=== PATIENT | female | born 1990 | race Caucasian/White ===

== ENCOUNTER → 2024-09-21 | Outpatient (CLI) | payer BC, SELFPAY ==
[2024-09-21 13:08] LABS: Collection Type, Urine Clean Catch
[2024-09-21 13:50] LABS: Bacteria,Urine Rare; Bilirubin,Urine Negative (Negative); Blood,Urine 1+ (Negative); Clarity,Urine Clear (Clear/Hazy); Color,Urine Yellow (Lt Yel-Yel); Glucose, Urine Negative (Negative); Ketones,Urine Negative (Negative); Leukocyte Esterase,Urine Positive (Negative); Nitrite,Urine Negative (Negative); Protein,Urine 1+ (Neg - Trace); RBC,Urine 5 /hpf (0-3); Specific Gravity,Urine 1.008 (1.001-1.035); Squamous Epithelial Cell,Urine < 1 /hpf (0-5); Urobilinogen,Urine Negative mg/dL (0.0-1.0); WBC,Urine 41 /hpf (0-5)
== END | disposition home or self-care (01) ==
LOC: SLDO 12:51
PROVIDERS: PCP Family Medicine; Referring Provider Family Medicine; Visit Provider Family Medicine
DX: N39.0 Urinary tract infection, site not specified (principal)
CPT/HCPCS: 81001; 87077; 87086; 87186

== ENCOUNTER 2024-11-18 12:52 | Outpatient (AMB) | payer BC, SELFPAY ==
[2024-11-18 13:01] VITALS: BP 105/74; PULSE 73; RESP 18; TEMP 36.1; O2SAT 99; BMI 22.6
--- NOTE | 2024-11-18 13:01 | PD.GSCLVISIT ---
[facility] - [facility] 11/18/24 13:01 Height 1.7 m Height Method Stated Weight 65.459 kg Weight Measurement Method Standing Scale BMI 22.6 BP 105/74 Blood Pressure Source Automatic Cuff Blood Pressure Location Left Upper Arm Position Sitting Respiration 18 Pulse 73 Pulse Source Monitor Temp 97.0 F Temp Source Temporal Artery Scan Pulse Oximetry (%) 99 Oxygen Delivery Method Room Air Med/Allergies Allergies & Medications Allergies amoxicillin [From Augmentin] Allergy (Severe, Verified 11/18/24 13:03) Swelling of Lip/Tongue/Throat clavulanic acid [From Augmentin] Allergy (Severe, Verified 11/18/24 13:03) Swelling of Lip/Tongue/Throat Medication Reconciliation albuterol sulfate 90 mcg/actuation aerosol inhaler 2 puff inhalation Q6H PRN Shortness Of Breath Or Wheezing 09/24/24 [History Confirmed 11/18/24] ciprofloxacin HCl 500 mg tablet (Cipro) 500 mg PO BID 09/24/24 [History Confirmed 11/18/24] clonazepam 0.5 mg tablet 0.5 mg PO QDAY 09/24/24 [History Confirmed 11/18/24] loratadine 10 mg tablet (Claritin) 10 mg PO QDAY 09/24/24 [History Confirmed 11/18/24] MA Intake Visit Data Collection New Patient or Established: Established Patient (seen at [facility] within 3 years) Seen by Clinical Staff ONLY (RN/MA): No Reason for Visit:: REFERRAL HEMORRHOIDS Pain Present Currently: Yes 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 PCP or OBGYN visit in last 3 months: Yes Hx Now: No Do You Feel Safe at Home: Yes Authorities Contacted: N/A Smoking Status Smoking Status: Never smoker Immunization / Flu Flu Vaccine in the Last 12 Months: No Flu Vaccine Exclusion Criteria: No Exclusion Criteria Past Medical History Past Medical History NEUROLOGIC: Positive Neurological Disorders and Migraine (tension headaches); Negative Seizures CARDIAC: Negative Cardiac Disorders or Congestive Heart Failure RESPIRATORY: Positive Asthma (controlled); Negative Chronic Obstructive Pulmonary Disease (COPD) GASTROINTESTINAL: Positive Gastrointestinal Disorders (constipation) GENITOURINARY: Positive Genitourinary Disorders (kidney infection at this time, taking antibiotics for 3 days); Negative Renal Disease REPRODUCTIVE: Positive Previous Pregnancies ENDOCRINE: Negative Endocrine Disorders, Diabetes Mellitus Type 1 or Diabetes Mellitus Type 2 HEMATOLOGIC: Positive Anemia; Negative Sickle Cell Disease PSYCHO/SOCIAL: Positive Anxiety and Depression (resolved) OTHER HISTORY: Positive Chicken Pox; Negative Falls, Blood Transfusions, Blood Transfusion Reaction, Anesthesia Reactions or Cancer Surgical History SURGICAL: Positive Section (X2) Social History SMOKING STATUS: Smoking status: Never smoker ALCOHOL: Alcohol Intake: Current HOUSING: Housing: House HPI HPI Narrative 34F referred for perianal pain. Pt reports she has had hemorrhoids for a long time but she underwent colonoscopy 09/2024 and since then has had severe perianal pain, feels like she is sitting on a knife, which is constant but even worse during defecation. When asked pt does state that defecating feels like passing shards of glass, and she does have some blood with wiping though no itching. Pt has a history of constipation but has increased her water intake to 5-6 bottles of water daily and was instructed to take miralax BID; she has since stopped the miralax and states her BMs are soft without any straining or diarrhea. She has used creams but is unable to use suppositories due to the pain and has not tried sitz baths as she does not have a bathtub Colonoscopy showed areas of erythema which were biopsied and pathology was negative, as well as hemorrhoids PMH: None PSHx: Csections, venoseal procedure of lower extremity Meds: MVI Allergies: Augmentin Social hx: Nonsmoker Family hx: grandparent with colon CA but no first degree relatives ROS Review of Systems Systems Reviewed: All systems reviewed, normal except as documented Objective/Exam General General Appearance: alert, cooperative and well groomed Resp Respiratory exam: Absent respiratory distress Rectal Rectal exam: Present other (sentinel pile at posterior midline of anus indicative of anal fissure; area is exquisitely tender so exam was aborted) Assessment & Plan Diagnosis / Problem List (1) Anal fissure: Status: Acute Assessment & Plan: 34F presenting with severe anal pain with findings indicative of an anal fissure. I advised pt that compound cream can help the anal sphincter muscles to relax and improve pain; I also recommended she obtain a sitz bath to use over her toilet up to TID, 15 minutes at a time with epsom salt. All questions were answered and pt is agreeable to this plan Plan: F/u in 6 weeks Office Procedures GNS Level of Care Nursing/Assessment Patient Status: Established Patient Nursing Assessment/Reassesment: Medication Reconciliation, Update PMH in EMR and Vital Signs Coordination of Care: Complex Care and Chronic Disease 1-5, Consent,records obtained, informed consent, Education Simp Pt/Fam, Results/Orders obtained and Staff clarify orders Established Patient Charge Established Patient Point Assignment: 90 Established Patient Point Charge: Level 3 (80-115) Patient Portal Questionaires Social History Living Situation History Housing: House Tobacco History Smoking Status: Never smoker Alcohol History Alcohol Intake: Current Domestic Abuse History Do You Feel Safe at Home: Yes Review of Systems Report any current symptoms Only answer those that you have currently: Past Medical History Past Medical History Have you ever been diagnosed with any of the following: Neurological Problems Seizures: No Migraine: Yes (tension headaches) Cardiology Problems Congestive Heart Failure: No Respiratory Problems Chronic Obstructive Pulmonary Disease (COPD): No Asthma: Yes (controlled) Genital/Urinary Problems Renal Disease: No Reproductive Problems Previous Pregnancies: Yes Endocrine Problems Diabetes Mellitus Type 1: No Diabetes Mellitus Type 2: No Blood Problems Anemia: Yes Sickle Cell Disease: No Psychologic Problems Anxiety: Yes Depression: Yes (resolved) Other Problems Falls: No Blood Transfusions: No Blood Transfusion Reaction: No Anesthesia Reactions: No Chicken Pox: Yes Cancer: No
== END 2024-11-18 13:20 | disposition home or self-care (01) ==
PROVIDERS: PCP Nurse Practitioner Family; Referring Provider Nurse Practitioner Family; Supervising Provider Surgery; Visit Provider Surgery
DX: K60.2 Anal fissure, unspecified (principal)
CPT/HCPCS: 99213; G0463

== ENCOUNTER → 2024-11-24 | Outpatient (CLI) | payer BC, SELFPAY ==
--- NOTE | 2024-11-24 10:01 | XR_ITS ---
Examination: Abdomen AP single view Technique: AP portable supine abdomen, single view Exam date and time: November 24, 2024 1010 hours INDICATIONS: Abdominal pain beginning one year ago. FINDINGS: Moderate stool throughout the colon No obstruction No free air Intact osseous structures IMPRESSION: Moderate stool throughout the colon
== END | disposition home or self-care (01) ==
PROVIDERS: PCP Family Medicine; Referring Provider Specialist; Visit Provider Specialist
DX: K59.00 Constipation, unspecified (principal)
CPT/HCPCS: 74018

== ENCOUNTER 2025-01-06 09:48 | Outpatient (AMB) | payer BC, SELFPAY ==
--- NOTE | 2025-01-06 09:59 | PD.GSCLVISIT ---
[facility] - [facility] 01/06/25 10:00 Height 1.7 m Height Method Stated Weight 66.31 kg Weight Measurement Method Standing Scale BMI 22.9 BP 114/76 Blood Pressure Source Automatic Cuff Blood Pressure Location Right Upper Arm Position Sitting Respiration 18 Pulse 84 Pulse Source Monitor Temp 97.8 F Temp Source Temporal Artery Scan Pulse Oximetry (%) 98 Oxygen Delivery Method Room Air Med/Allergies Allergies & Medications Allergies amoxicillin (From Augmentin) Allergy (Severe, Verified 01/06/25 10:01) Swelling of Lip/Tongue/Throat clavulanic acid (From Augmentin) Allergy (Severe, Verified 01/06/25 10:01) Swelling of Lip/Tongue/Throat Medication Reconciliation albuterol sulfate 90 mcg/actuation aerosol inhaler 2 puff inhalation Q6H PRN Shortness Of Breath Or Wheezing 09/24/24 [History Confirmed 01/06/25] ciprofloxacin HCl 500 mg tablet (Cipro) 500 mg PO BID 09/24/24 [History Confirmed 01/06/25] clonazepam 0.5 mg tablet 0.5 mg PO QDAY 09/24/24 [History Confirmed 01/06/25] Held on 09/24/24. Instructions: Resume on 09/25/24. loratadine 10 mg tablet (Claritin) 10 mg PO QDAY 09/24/24 [History Confirmed 01/06/25] MA Intake Visit Data Collection New Patient or Established: Established Patient (seen at [facility] within 3 years) Reason for Visit:: F/U HEMORRHOIDS Pain Present Currently: No Pain scale:: 0 Pain Scale Used: Quinones-Mackay/Numerical PCP or OBGYN visit in last 3 months: Yes Hx Now: No Do You Feel Safe at Home: Yes Authorities Contacted: N/A Smoking Status Smoking Status: Never smoker Immunization / Flu Flu Vaccine in the Last 12 Months: No Flu Vaccine Exclusion Criteria: No Exclusion Criteria Past Medical History Past Medical History NEUROLOGIC: Positive Neurological Disorders and Migraine (tension headaches); Negative Seizures CARDIAC: Negative Cardiac Disorders or Congestive Heart Failure RESPIRATORY: Positive Asthma (controlled); Negative Chronic Obstructive Pulmonary Disease (COPD) GASTROINTESTINAL: Positive Gastrointestinal Disorders (constipation) GENITOURINARY: Positive Genitourinary Disorders (kidney infection at this time, taking antibiotics for 3 days); Negative Renal Disease REPRODUCTIVE: Positive Previous Pregnancies MUSCULOSKELETAL: Negative Musculoskeletal Disorders ENDOCRINE: Negative Endocrine Disorders, Diabetes Mellitus Type 1 or Diabetes Mellitus Type 2 HEMATOLOGIC: Positive Anemia; Negative Sickle Cell Disease PSYCHO/SOCIAL: Positive Anxiety and Depression (resolved) OTHER HISTORY: Positive Chicken Pox; Negative Falls, Blood Transfusions, Blood Transfusion Reaction, Anesthesia Reactions or Cancer Surgical History SURGICAL: Positive Section (X2) Social History SMOKING STATUS: Smoking status: Never smoker ALCOHOL: Alcohol Intake: Current HOUSING: Housing: House Travel Risk Travel Hx Recent Travel: No HPI HPI Narrative 34F here for follow up of anal fissure. Since last visit pt has been using compound cream and feels her pain is improved, although she still has some episodes of pain and her constipation has not fully resolved. Pt states she is taking 9g of fiber in gummy form and drinking lots of water, but still feels she has to strain and has stringy BMs. She does have some bleeding with BMs as well. She has not yet tried sitz baths as she was unsure if they would be helpful ROS Review of Systems Systems Reviewed: All systems reviewed, normal except as documented Constitutional Constitutional: Reports system reviewed and no additional complaints, except as documented Objective/Exam General General Appearance: alert, cooperative and well groomed Resp Respiratory exam: Absent respiratory distress Assessment & Plan Diagnosis / Problem List (1) Anal fissure: Status: Acute Assessment & Plan: 34F with anal fissure now with some symptomatic improvement after using compound cream, although still with episodes of rectal bleeding likely related to internal hemorrhoids. I encouraged pt to try sitz baths and to switch to a powder form of fiber as that could help improve her BMs. I offered anusol suppositories which are not covered by her insurance but could be discounted with [employer], however pt would like to hold off until next visit Plan: Follow up in 6 weeks Office Procedures GNS Level of Care Nursing/Assessment Patient Status: Established Patient Nursing Assessment/Reassesment: Medication Reconciliation, Update PMH in EMR and Vital Signs Coordination of Care: Complex Care and Chronic Disease 1-5, Education Complex Pt/Fam, Consent,records obtained, informed consent, Results/Orders obtained and Staff clarify orders Established Patient Charge Established Patient Point Assignment: 95 Established Patient Point Charge: EP Level 3 (80-115) Patient Portal Questionaires Social History Living Situation History Housing: House Tobacco History Smoking Status: Never smoker Alcohol History Alcohol Intake: Current Domestic Abuse History Do You Feel Safe at Home: Yes Review of Systems Report any current symptoms Only answer those that you have currently: Past Medical History Past Medical History Have you ever been diagnosed with any of the following: Neurological Problems Seizures: No Migraine: Yes (tension headaches) Cardiology Problems Congestive Heart Failure: No Respiratory Problems Chronic Obstructive Pulmonary Disease (COPD): No Asthma: Yes (controlled) Genital/Urinary Problems Renal Disease: No Reproductive Problems Previous Pregnancies: Yes Endocrine Problems Diabetes Mellitus Type 1: No Diabetes Mellitus Type 2: No Blood Problems Anemia: Yes Sickle Cell Disease: No Psychologic Problems Anxiety: Yes Depression: Yes (resolved) Other Problems Falls: No Blood Transfusions: No Blood Transfusion Reaction: No Anesthesia Reactions: No Chicken Pox: Yes Cancer: No
[2025-01-06 10:00] VITALS: BP 114/76; PULSE 84; RESP 18; TEMP 36.6; O2SAT 98; BMI 22.9
== END 2025-01-06 10:08 | disposition home or self-care (01) ==
LOC: HODSRG 09:48
PROVIDERS: PCP Nurse Practitioner Family; Referring Provider Nurse Practitioner Family; Supervising Provider Surgery; Visit Provider Surgery
DX: K60.2 Anal fissure, unspecified (principal)
CPT/HCPCS: 99213; G0463

== ENCOUNTER → 2025-09-15 | Outpatient (CLI) | payer BC, SELFPAY ==
[2025-09-22 06:38] LABS: ANA Screen, IFA NEGATIVE (NEGATIVE)
== END | disposition home or self-care (01) ==
LOC: COPL 14:36
PROVIDERS: PCP Family Medicine; Referring Provider Dermatology; Visit Provider Dermatology
DX: L71.8 Other rosacea (principal)
CPT/HCPCS: 36415; 86038